=== PATIENT | male | born 2000 | race Two or more races ===

== ENCOUNTER 2022-12-24 17:51 | Emergency (ER) | payer OTHER ==
[~2022-12-24] VITALS: Ht 182.9 cm; Wt 91.2 kg
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
[2022-12-24] MEDS ORDERED: ACETAMINOPHEN 325 MG TABLET ONE (18:19)
[2022-12-24] MEDS ORDERED: ACETAMINOPHEN 325 MG TABLET PO ONE (18:30)
--- NOTE | 2022-12-24 18:53 | NUR ---
PT TO CT VIA [facility]
--- NOTE | 2022-12-24 19:08 | NUR ---
PT IS BACK FROM CT
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
[2022-12-24] MEDS ORDERED: NAPR-1164 PO (20:12)
[2022-12-24 20:36] VITALS: BP 144/86
--- NOTE | 2022-12-24 20:36 | NUR ---
Patient discharged to home in stable condition. Written and verbal after care instructions given. Patient verbalizes understanding of instruction.
== END 2022-12-24 20:37 | disposition home or self-care (01) ==
LOC: ER 17:58
DX: S09.90XA Unspecified injury of head, initial encounter (principal); V89.2XXA Person injured in unspecified motor-vehicle accident, traffic, initial encounter; Y93.89 Activity, other specified; Y92.89 Other specified places as the place of occurrence of the external cause; Y99.8 Other external cause status
CPT/HCPCS: 70450-TC